=== PATIENT | female | born 1950 | race Asian ===

== ENCOUNTER 2017-02-26 18:39 | Emergency (ER) | payer BC, MEDICAID ==
[~2017-02-26] VITALS: Ht 157.5 cm; Wt 56.7 kg
[~2017-02-26 18:39] MED LIST: BACTRIM DS TAB1 EAC1 ORAL; FLOXIN OTIC10 DROP OT
[2017-02-26 19:15] VITALS: BP 139/87
[2017-02-26] MEDS: Ipratropium 0.02% Inh Soln 2.5ml UD HHN SCH ×3 (19:20→19:48)
[2017-02-26] MEDS: Albuterol ud Inhalation HHN SCH ×3 (19:21→19:48)
[2017-02-26] MEDS ORDERED: ALBUTEROL SULF8.5 GM INH (20:23)
[2017-02-26] MEDS ORDERED: PREDNISONE20 MG ORAL (20:23)
[2017-02-26 20:45] VITALS: BP 135/85
[2017-02-26 20:50] VITALS: BP 135/85
--- NOTE | 2017-02-26 22:13 | Emergency Room Report ---
History of Present Illness General Chief Complaint: Upper Respiratory Illness Source: Patient Present Illness HPI 66-year-old female presents ED complaining of wheezing and shortness of breath x2 days. Notes history of asthma. States that she does not have an inhaler at this time. Denies cough. Denies any chest pain. Denies any fevers or chills. No other aggravating relieving factors. Denies any other associated symptom Allergies: Coded Allergies: No Known Allergies (Unverified , 10/14/13) Patient History Past Medical History: DM Past Surgical History: none Pertinent Family History: none Social History: Denies: smoking, alcohol use, drug use Now: No Immunizations: UTD Reviewed Nursing Documentation: PMH: Agreed, PSxH: Agreed Nursing Documentation-PMH Hx Diabetes: Yes Review of Systems All Other Systems: negative except mentioned in HPI Physical Exam Vital Signs Date Time Temp Pulse Resp B/P (MAP) Pulse Ox O2 Delivery O2 Flow Rate FiO2 02/26/17 18:59 97.5 106 20 154/79 99 Room Air 02/26/17 19:23 21 Sp02 EP Interpretation: reviewed, normal General Appearance: no apparent distress, alert, GCS 15, non-toxic Head: normocephalic Eyes: bilateral eye normal inspection, bilateral eye PERRL ENT: hearing grossly normal, normal pharynx, no angioedema, normal voice Neck: full range of motion, supple/symm/no masses Respiratory: wheezing Cardiovascular #1: no edema, tachycardia Gastrointestinal: normal inspection Rectal: deferred Genitourinary: no CVA tenderness Musculoskeletal: normal inspection Neurologic: alert, oriented x3, responsive, motor strength/tone normal, sensory intact, speech normal Psychiatric: normal inspection Skin: normal inspection Lymphatic: normal inspection Medical Decision Making Diagnostic Impression: Primary Impression: Asthma exacerbation Qualified Codes: J45.901 - Unspecified asthma with (acute) exacerbation ER Course Hospital Course 66-year-old female presents to ED complaining of wheezing Differential diagnoses include: URI, bronchitis, asthma/COPD, pneumonia Clinical course Patient placed on stretcher. After initial history, physical exam reveals an elderly female in no acute distress. Bilateral TM unremarkable. No pharyngeal erythema. No tonsillar exudates. No lymphadenopathy. Mild wheezing noted on exam, no signs of respiratory distress or retractions. Patient given Prednisone and albuterol treatment in ED with symptoms improved. Reassurance given Diagnosis - asthma exacerbation Stable and discharged home with prescriptions for prednisone, albuterol inhaler. Instructed to followup with PMD. Return to ED if symptoms recur or worsen Last Vital Signs Date Time Temp Pulse Resp B/P (MAP) Pulse Ox O2 Delivery O2 Flow Rate FiO2 02/26/17 20:50 97.9 98 18 135/85 100 Room Air 02/26/17 19:50 21 Status: improved Disposition: HOME, SELF-CARE Condition: Stable Scripts Prednisone* (PREDNISONE*) 20 Mg Tablet 40 MG ORAL DAILY, #10 TAB Prov: PIPE MCKEON M.D. 02/26/17 Albuterol Sulfate* (ALBUTEROL SULFATE MDI*) 8.5 Gm Hfa.aer.ad 2 PUFF INH Q6H, #1 EA 0 Refills Prov: PIPE MCKEON M.D. 02/26/17 Patient Instructions: Asthma, Adult, [id number] PIPE MCKEON M.D. Feb 26, 2017 22:13
== END 2017-02-26 20:50 | disposition home or self-care (01) ==
LOC: EMR 19:30
DX: J45.901 Unspecified asthma with (acute) exacerbation (principal); E11.9 Type 2 diabetes mellitus without complications
CPT/HCPCS: 99284; J7512

== ENCOUNTER 2017-03-16 19:22 | Emergency (ER) | payer BC, MEDICAID ==
[~2017-03-16] VITALS: Ht 154.9 cm; Wt 48.1 kg
[~2017-03-16 19:22] MED LIST changes: +ALBUTEROL SULF8.5 GM INH; +PREDNISONE20 MG ORAL
[2017-03-16] MEDS ORDERED: GLIMEPIRIDE1 MG ORAL (19:38)
[2017-03-16] MEDS ORDERED: METFORMIN HCL1000 M1 ORAL (19:38)
[2017-03-16] MEDS ORDERED: TRADJENTA5 MG PO (19:38)
[2017-03-16] MEDS ORDERED: ZOCOR20 MG ORAL (19:38)
[2017-03-16] MEDS ORDERED: Solu-MEDROL 125mg Inj IVP ONE (20:00)
[2017-03-16] MEDS ORDERED: Acetaminophen 500mg (ES) tab ORAL ONE (20:00)
--- NOTE | 2017-03-16 20:03 | Emergency Room Report ---
History of Present Illness General Chief Complaint: Asthma Source: Patient Present Illness HPI 66-year-old female with history of asthma, hypertension and diabetes p/w SOB for 3 days. Also with a fever at home States that she is wheezing, SOB occurs both at rest and on exertion. + non productive cough. Denies chest pain. Patient has been using albuterol inhaler every 6 hours. Patient does not have nebulizer at home. Pt states that this episode is similar to other episodes of asthma exacerbation. + Fever and chills, is at home Patient denies history of ICU admissions, intubations, or usage of BIPAP for asthma. Denies history of PE/DVT Allergies: Coded Allergies: No Known Allergies (Unverified , 10/14/13) Patient History Past Medical History: see triage record Past Surgical History: none Pertinent Family History: none Reviewed Nursing Documentation: PMH: Agreed, PSxH: Agreed Nursing Documentation-PMH Past Medical History: No History, Except For Hx Hypertension: Yes Hx Asthma: Yes Hx Diabetes: Yes Review of Systems All Other Systems: negative except mentioned in HPI Physical Exam Vital Signs Date Time Temp Pulse Resp B/P (MAP) Pulse Ox O2 Delivery O2 Flow Rate FiO2 03/16/17 19:32 100.4 98 22 95 Room Air Sp02 EP Interpretation: reviewed, normal General Appearance: alert, GCS 15, non-toxic, moderate distress Head: normocephalic, atraumatic Eyes: bilateral eye normal inspection, bilateral eye PERRL, bilateral eye EOMI ENT: normal ENT inspection, normal pharynx, normal voice, moist mucus membranes Neck: normal inspection, full range of motion, supple Respiratory: other - exp wheezing b/l Cardiovascular #1: normal capillary refill, tachycardia Cardiovascular #2: 2+ radial (R), 2+ radial (L) Gastrointestinal: normal inspection, non tender, soft, non-distended, no guarding Musculoskeletal: normal inspection, back normal, normal range of motion, non- tender Neurologic: normal inspection, alert, oriented x3, responsive, motor strength/ tone normal, sensory intact, normal gait, speech normal Psychiatric: normal inspection, judgement/insight normal, memory normal Skin: normal inspection, normal color, no rash, warm/dry, well hydrated, normal turgor Medical Decision Making Diagnostic Impression: Primary Impression: Asthma exacerbation Additional Impression: Viral upper respiratory infection ER Course 66-year-old female with history of asthma p/w SOB fever and chills DDX: Asthma exacerbation, pneumonia, upper respiratory infection/viral syndrome Plan: Combivent nebulizer treatment x 3, steroids, EKG, CXR If patient's condition minimally improves/worsens will require IV access and blood work. Possible IV medications such as magnesium sulfate, continuous albuterol, BIPAP. ER Course: Patient has been treated with combivent x 3, steroids has some improvement, mag given patient now feel smuch better speaking in complete sentences DC home Disposition: Patient will be discharged to home with albuterol nebulzier, Tamiflu and steroids and tessalon perles Strict precautions are discussed with patient on when to emergently return to the ED including: persistent or worsening SOB, chest pain, fever, chills, which could indicate severe illness. Patient verbalized understanding. Patient is to follow up with her/his PMD within 5 days. Patient agrees with plan. Please note that this Emergency Department Report was dictated using [employer] milling machine operator technology software, occasionally this can lead to erroneous entry secondary to interpretation by the dictation equipment. EKG Diagnostic Results EP Interpretation: Yes Rate: tachy Rhythm: NSR ST Segments: no changes ASA given to patient: No Rhythm Strip EP Interpretation: Yes Rate: 100 Rhythm: NSR, no PVCs, no ectopy Chest X-ray CXR: Ordered: Yes 1 view Indication: SOB EP interpretation: Yes Interpretation: No consolidation, no effusion, no PTX, no acute cardiopulmonary disease Impression: No acute disease Electronically signed by Abdias Andrews MD Laboratory Tests Test 03/16/17 19:49 03/16/17 20:04 White Blood Count 7.9 K/UL (4.8-10.8) Red Blood Count 3.93 M/UL (4.20-5.40) L Hemoglobin 11.1 G/DL (12.0-16.0) L Hematocrit 34.8 % (37.0-47.0) L Mean Corpuscular Volume 88 FL (80-99) Mean Corpuscular Hemoglobin 28.2 PG (27.0-31.0) Mean Corpuscular Hemoglobin Concent 31.9 G/DL (32.0-36.0) L Red Cell Distribution Width 11.3 % (11.6-14.8) L Platelet Count 254 K/UL (150-450) Mean Platelet Volume 6.5 FL (6.5-10.1) Neutrophils (%) (Auto) 68.9 % (45.0-75.0) Lymphocytes (%) (Auto) 14.6 % (20.0-45.0) L Monocytes (%) (Auto) 12.0 % (1.0-10.0) H Eosinophils (%) (Auto) 3.1 % (0.0-3.0) H Basophils (%) (Auto) 1.4 % (0.0-2.0) Sodium Level 134 MMOL/L (136-145) L Potassium Level 3.8 MMOL/L (3.5-5.1) Chloride Level 98 MMOL/L (98-107) Carbon Dioxide Level 27 MMOL/L (21-32) Anion Gap 9 mmol/L (5-15) Blood Urea Nitrogen 11 mg/dL (7-18) Creatinine 1.1 MG/DL (0.55-1.30) Estimate Glomerular Filtration Rate 49.9 mL/min (>60) Glucose Level 172 MG/DL (74-106) H Calcium Level 7.9 MG/DL (8.5-10.1) L Total Bilirubin 0.4 MG/DL (0.2-1.0) Aspartate Amino Transferase (AST) 28 U/L (15-37) Alanine Aminotransferase (ALT) 39 U/L (12-78) Alkaline Phosphatase 65 U/L (46-116) Troponin I 0.000 ng/mL (0.000-0.056) Pro-B-Type Natriuretic Peptide 46 pg/mL (0-125) Total Protein 7.8 G/DL (6.4-8.2) Albumin 3.7 G/DL (3.4-5.0) Globulin 4.1 g/dL Albumin/Globulin Ratio 0.9 (1.0-2.7) L Urine Color Pale yellow Urine Appearance Clear Urine pH 5 (4.5-8.0) Urine Specific [place] 1.010 (1.005-1.035) Urine Protein Negative (NEGATIVE) Urine Glucose (UA) Negative (NEGATIVE) Urine Ketones Negative (NEGATIVE) Urine Occult Blood 4+ (NEGATIVE) H Urine Nitrite Negative (NEGATIVE) Urine Bilirubin Negative (NEGATIVE) Urine Urobilinogen Normal MG/DL (0.0-1.0) Urine Leukocyte Esterase Negative (NEGATIVE) Urine RBC 2-4 /HPF (0 - 2) H Urine WBC 0-2 /HPF (0 - 2) Urine Squamous Epithelial Cells Few /LPF (NONE/OCC) Urine Bacteria Few /HPF (NONE) Last Vital Signs Date Time Temp Pulse Resp B/P (MAP) Pulse Ox O2 Delivery O2 Flow Rate FiO2 03/16/17 19:32 100.4 98 22 95 Room Air Disposition: HOME, SELF-CARE Condition: Improved Scripts Benzonatate* (TESSALON PERLE*) 100 Mg Capsule 100 MG ORAL THREE TIMES A DAY, #21 PERLE Prov: RetinoAbdiasDAlberto 03/16/17 Albuterol Sulfate* (ALBUTEROL SULFATE HHN*) 2.5 Mg/3 Ml Vial.neb 2.5 MG HHN Q4H Y for Shortness of Breath, #25 VIAL 1 Refill Prov: Abdias Andrews M.D. 03/16/17 Nebulizer (Compact Compressor Nebulizer) 1 Each Each [facility], #1 0 Refills Prov: Abdias Andrews M.D. 03/16/17 Prednisone* (PREDNISONE*) 20 Mg Tablet 40 MG ORAL DAILY for 5 Days, #10 TAB 0 Refills Prov: Abdias Andrews M.D. 03/16/17 Oseltamivir Phosphate (Tamiflu) 75 Mg Capsule 75 MG ORAL TWICE A DAY for 5 Days, #10 CAP 0 Refills Prov: Abdias Andrews M.D. 03/16/17 Abdias Andrews M.D. Mar 16, 2017 20:03
[2017-03-16] MEDS: Albuterol ud Inhalation HHN SCH ×2 (20:12→20:13)
[2017-03-16] MEDS: Ipratropium 0.02% Inh Soln 2.5ml UD HHN SCH ×2 (20:12→20:13)
[2017-03-16] MEDS ORDERED: TAMIFLU75 MG ORAL (20:23)
[2017-03-16 20:24] LABS: BASOPHILS % (AUTO) 1.4 % (0.0-2.0); EOSINOPHILS % (AUTO) 3.1 % (0.0-3.0); HEMATOCRIT 34.8 % (37.0-47.0); HEMOGLOBIN 11.1 G/DL (12.0-16.0); LYMPHOCYTES % (AUTO) 14.6 % (20.0-45.0); MEAN CORPUSCULAR VOLUME 88 FL (80-99); NEUTROPHILS % (AUTO) 68.9 % (45.0-75.0); PLATELET COUNT 254 K/UL (150-450); RED BLOOD COUNT 3.93 M/UL (4.20-5.40); RED CELL DISTRIBUTION WIDTH 11.3 % (11.6-14.8); WHITE BLOOD COUNT 7.9 K/UL (4.8-10.8)
[2017-03-16 20:34] LABS: ANION GAP 9 mmol/L (5-15); BLOOD UREA NITROGEN 11 mg/dL (7-18); CALCIUM 7.9 MG/DL (8.5-10.1); CARBON DIOXIDE 27 MMOL/L (21-32); CHLORIDE 98 MMOL/L (98-107); CREATININE 1.1 MG/DL (0.55-1.30); POTASSIUM 3.8 MMOL/L (3.5-5.1); SODIUM 134 MMOL/L (136-145)
[2017-03-16 20:37] LABS: APPEARANCE,URINE CLEAR; BILIRUBIN, URINE NEGATIVE (NEGATIVE); COLOR,URINE PALE YELLOW; GLUCOSE, URINE (UA) NEGATIVE (NEGATIVE); KETONES,URINE NEGATIVE (NEGATIVE); LEUKOCYTE ESTERASE ,URINE NEGATIVE (NEGATIVE); NITRITE,URINE NEGATIVE (NEGATIVE); PH,URINE 5 (4.5-8.0); PROTEIN,URINE NEGATIVE (NEGATIVE); UROBILINOGEN,URINE NORMAL MG/DL (0.0-1.0)
[2017-03-16] MEDS ORDERED: PREDNISONE20 MG ORAL (20:42)
[2017-03-16 20:43] LABS: ALANINE AMINOTRANSFERASE 39 U/L (12-78); ALBUMIN 3.7 G/DL (3.4-5.0); ALBUMIN/GLOBULIN RATIO 0.9 (1.0-2.7); ALKALINE PHOSPHATASE 65 U/L (46-116); ASPARTATE AMINO TRANSFERASE 28 U/L (15-37); BILIRUBIN,TOTAL 0.4 MG/DL (0.2-1.0)
[2017-03-16] MEDS ORDERED: COMPACT COMPRE1 EACH MC (20:58)
[2017-03-16] MEDS ORDERED: ALBUTEROL2.5 MG/3 M HHN (20:58)
[2017-03-16] MEDS ORDERED: TESSALON PERLE100 MG ORAL (21:17)
[2017-03-16 21:28] VITALS: BP 128/88
--- NOTE | 2017-03-17 12:50 | Diagnostic Imaging Report ---
Indication: Dyspnea Comparison: None A single view chest radiograph was obtained. Findings: Cardiomediastinal appearance is within normal limits for age. Pulmonary vascularity is appropriate. The diaphragmatic contour is smooth and costophrenic angles are sharp. No pleural effusions are identified. The bones are osteopenic. Impression: No acute findings
--- NOTE | 2017-03-17 17:54 | Cardiology Report ---
APPROVED REPORT EKG Measurement Heart [id number] ID [id number] Sinus tachycardia Otherwise normal ECG
== END 2017-03-16 21:29 | disposition home or self-care (01) ==
LOC: EMR 20:00
DX: J45.901 Unspecified asthma with (acute) exacerbation (principal); J06.9 Acute upper respiratory infection, unspecified; B34.9 Viral infection, unspecified; I10 Essential (primary) hypertension; E11.9 Type 2 diabetes mellitus without complications
CPT/HCPCS: 36415; 71045; 80053; 81003; 83880; 84484; 85025; 93005; 94640; 94664; 96365; 99284; J2930

== ENCOUNTER 2017-03-21 09:24 | Emergency (ER) | payer BC, MEDICAID ==
[~2017-03-21] VITALS: Ht 154.9 cm; Wt 48.1 kg
[~2017-03-21 09:24] MED LIST changes: +ALBUTEROL2.5 MG/3 M HHN; +COMPACT COMPRE1 EACH MC; +GLIMEPIRIDE1 MG ORAL; +METFORMIN HCL1000 M1 ORAL; +TAMIFLU75 MG ORAL; +TESSALON PERLE100 MG ORAL; +TRADJENTA5 MG PO; +ZOCOR20 MG ORAL
[2017-03-21] MEDS ORDERED: Tylenol #3 tab (300mg/30mg) ORAL ONE (10:15)
[2017-03-21] MEDS ORDERED: Albuterol ud Inhalation HHN ONE ×2 (10:15→11:30)
--- NOTE | 2017-03-21 10:47 | Emergency Room Report ---
History of Present Illness General Chief Complaint: Chest Pain Source: Patient, Medical Record Present Illness HPI 66-year-old female presents with chest tightness, cough and pleuritic chest pain since last night. Ran out of home nebulizer medication. Has known asthma. Was seen in the ER a few days ago for similar episode, chest x-ray did not show pneumonia, improved after meds and magnesium. Patient never hospitalized or intubated or on BiPAP for asthma She denies fever or chills or generalized body aches Allergies: Coded Allergies: No Known Allergies (Unverified , 10/14/13) Patient History Past Medical History: asthma Past Surgical History: none Pertinent Family History: none Social History: Denies: smoking, alcohol use, drug use Last Menstrual Period: 2008 Now: No Immunizations: UTD Reviewed Nursing Documentation: PMH: Agreed, PSxH: Agreed Nursing Documentation-PMH Past Medical History: No History, Except For Hx Hypertension: Yes Hx Asthma: Yes Hx Diabetes: Yes Review of Systems All Other Systems: negative except mentioned in HPI Physical Exam Vital Signs Date Time Temp Pulse Resp B/P (MAP) Pulse Ox O2 Delivery O2 Flow Rate FiO2 03/21/17 09:33 98.8 112 23 167/83 98 Room Air 03/21/17 10:25 21 Sp02 EP Interpretation: reviewed, normal General Appearance: normal inspection, well appearing, no apparent distress, alert, GCS 15, non-toxic Head: normocephalic, atraumatic Eyes: bilateral eye PERRL, bilateral eye EOMI ENT: normal ENT inspection, hearing grossly normal, normal pharynx, no angioedema, normal voice, TMs + canals normal, uvula midline, moist mucus membranes Neck: normal inspection, full range of motion, supple, thyroid normal, no meningismus, no bony tend Respiratory: normal inspection, lungs clear, normal breath sounds, no rhonchi, no respiratory distress, no retraction, no accessory muscle use, no wheezing, decreased breath sounds, speaking full sentences Cardiovascular #1: regular rate, rhythm, no edema, no JVD, normal capillary refill Gastrointestinal: normal inspection, normal bowel sounds, non tender, soft, no mass, no peritonitis, non-distended, no guarding, no hernia, no pulsatile mass Genitourinary: no CVA tenderness Musculoskeletal: normal inspection, back normal, normal range of motion, no calf tenderness, pelvis stable, Criss's Sign negative Neurologic: normal inspection, alert, oriented x3, responsive, instrument mechanic III-XII nml as tested, motor strength/tone normal, cerebellar normal, normal gait, speech normal Psychiatric: normal inspection, judgement/insight normal, mood/affect normal, no suicidal/homicidal ideation, no delusions Skin: normal inspection, normal color, no rash Lymphatic: normal inspection, no adenopathy Medical Decision Making Diagnostic Impression: Primary Impression: Chest pain Qualified Codes: R07.89 - Other chest pain ER Course Vital signs stable, afebrile Reduced air movement and chest tightness on exam Likely another acute asthma exacerbation Improved very quickly with one albuterol Was also given Tylenol with codeine for cough and pleuritic chest pain Patient very well appearing, nonseptic appearing In light of recent normal chest x-ray and lungs being clear to auscultation unlikely that patient requires another x-ray to evaluate for pneumonia Was given refill on asthma and medications and Tylenol codeine ER course: Patient has remained stable during ED stay. Disposition: Patient is to be discharged to home. Prescriptions given are albuterol, T#3 Patient is instructed to follow up with their primary care doctor within 5 days. Strict return precautions discussed with patient such as fever, chills, worsening/severe pain, nausea, vomiting, which may indicate severe illness. Patient verbalizes understanding and agrees with plan. Please note that this Emergency Department Report was dictated using [employer] truck driver technology software, occasionally this can lead to erroneous entry secondary to interpretation by the dictation equipment EKG Diagnostic Results Rate: tachycardiac Rhythm: NSR ST Segments: no acute changes ASA given to the pt in ED: No Rhythm Strip Diag. Results EP Interpretation: yes Rate: 105 Rhythm: NSR, no PVC's, no ectopy Last Vital Signs Date Time Temp Pulse Resp B/P (MAP) Pulse Ox O2 Delivery O2 Flow Rate FiO2 03/21/17 10:33 101 15 Room Air 21 03/21/17 10:32 98 03/21/17 09:33 98.8 167/83 Status: improved Disposition: HOME, SELF-CARE Referrals: [facility],REFERRING (PCP) COCO GRECO M.D. Mar 21, 2017 10:47
[2017-03-21] MEDS ORDERED: ACETAMINOPHEN-1 EAC1 ORAL (10:48)
[2017-03-21] MEDS ORDERED: ALBUTEROL2.5 MG/3 M HHN (10:48)
[2017-03-21 11:25] VITALS: BP 156/67
[2017-03-21 12:38] VITALS: BP 114/58
--- NOTE | 2017-03-26 14:51 | Cardiology Report ---
APPROVED REPORT EKG Measurement Heart [id number] Sinus tachycardia Possible Left atrial enlargement Possible Anterior infarct, age undetermined Abnormal ECG
== END 2017-03-21 12:41 | disposition home or self-care (01) ==
LOC: EMR 09:53
DX: R07.89 Other chest pain (principal); E11.9 Type 2 diabetes mellitus without complications; J45.909 Unspecified asthma, uncomplicated
CPT/HCPCS: 93005; 94640; 94664; 99283